=== PATIENT | female | born 1960 | race Caucasian/White ===

== ENCOUNTER → 2016-07-30 | Outpatient (CLI) | payer BC | END | disposition disaster alternative care site (69) | LOC: GRAD 15:46 | DX: R91.8 Other nonspecific abnormal finding of lung field (principal); R59.9 Enlarged lymph nodes, unspecified; R06.02 Shortness of breath; R53.1 Weakness; K44.9 Diaphragmatic hernia without obstruction or gangrene; Z98.82 Breast implant status ==